=== PATIENT | female | born 1980 | race Caucasian/White ===

== ENCOUNTER 2016-05-06 10:33 | Emergency (ER) | payer MEDICAID, OTHER ==
[~2016-05-06] VITALS: Ht 167.6 cm; Wt 84.0 kg
[~2016-05-06 10:33] MED LIST: LISI-363 PO; LISI30TA4 PO; OXYC1SOL5 PO; PROT40TA PO; WELLTAB39 PO; XANA0.5T PO
[2016-05-06 10:35] VITALS: BP 163/85; PULSE 67; RESP 14; TEMP 98; O2SAT 97
[2016-05-06] MEDS ORDERED: NAPR220T95 PO (10:53)
[2016-05-06] MEDS ORDERED: KETOROLAC TROMETHAMINE 30 MG/ML (IVP) VIAL IV PUSH ONE (11:30)
[2016-05-06] MEDS ORDERED: MORPHINE SULFATE 4 MG/ML INJ IV PUSH STA (11:30)
[2016-05-06] MEDS ORDERED: CLINDAMYCIN INJ 600 MG in SODIUM CHLORIDE 0.9% INJ 100 ML IV ONE (11:30)
[2016-05-06] MEDS ORDERED: SODIUM CHLOR 0.9% 1000 ML INJ 1,000 ML IV ONE (11:30)
[2016-05-06 12:03] LABS: AUTOMATED NEUTROPHIL # 8.1 TH/MM3 (1.8-7.7); BASOPHIL % 0.4 % (0.0-2.0); EOSINOPHIL # 0.1 TH/MM3 (0-0.4); EOSINOPHIL % 1.1 % (0.0-4.0); HEMATOCRIT 33.9 % (35.0-46.0); LYMPH % 10.1 % (9.0-44.0); MEAN CELL VOLUME 85.6 FL (80.0-100.0); MEAN CORPUSCULAR HEMOGLOBIN 28.6 PG (27.0-34.0); MEAN CORPUSCULAR HGB CONC 33.4 % (32.0-36.0); MONO % 7.5 % (0.0-8.0); NEUT % 80.9 % (16.0-70.0); PLATELET COUNT 274 TH/MM3 (150-450); RED BLOOD COUNT 3.96 MIL/MM3 (4.00-5.30); RED CELL DISTRIBUTION WIDTH 16.1 % (11.6-17.2); WHITE BLOOD COUNT 9.9 TH/MM3 (4.0-11.0)
[2016-05-06 12:04] LABS: HEMO FLAGS AUTO DIFF
[2016-05-06 12:50] VITALS: BP 145/81; PULSE 50; RESP 14; O2SAT 99
[2016-05-06 12:50] LABS: PLATELET ESTIMATE SMEAR NORMAL (NORMAL); PLATELET MORPHOLOGY NORMAL (NORMAL); SCAN/DIFF AUTO DIFF CONFIRMED
[2016-05-06 13:24] LABS: ANION GAP 9 MEQ/L (5-15); AST (GOT) 12 U/L (15-37); BICARBONATE 26.1 MEQ/L (21.0-32.0); BLOOD UREA NITROGEN 10 MG/DL (7-18); CHLORIDE 105 MEQ/L (98-107); GLOMERULAR FILTRATION RATE 84 ML/MIN (>89); POTASSIUM 3.9 MEQ/L (3.5-5.1); SODIUM (NA) 140 MEQ/L (136-145)
[2016-05-06 13:27] LABS: ALKALINE PHOSPHATASE 59 U/L (45-117); ALT (GPT) 14 U/L (10-53); TOTAL BILIRUBIN ADULT 0.3 MG/DL (0.2-1.0)
[2016-05-06] MEDS ORDERED: NAPR500 PO (13:35)
[2016-05-06] MEDS ORDERED: HYDR-3533 PO (13:35)
--- NOTE | 2016-05-06 13:36 | PD ---
HPI Chief Complaint: Wound/Suture/Staple Re-Check Time Seen by Provider: 10:47 Travel History International Travel<30 days: No Contact w/Intl Traveler<30days: No Traveled to known affect area: No History of Present Illness HPI So 36-year-old woman presents to the emergency department complaining of a wound on her right leg. States she first knows about a week or so ago. A small red pimple. Over the past several days has gotten more painful red swollen. She's had drainage from the wound. There is an ulcerated base. She' s been putting some cream on it. She had nausea and vomiting when she first started getting sick as well, but she had fever and chills over the past couple days. She had some Keflex laying around that she started yesterday. Symptoms been worsening so she came to the emergency department today. History Past Medical History Medical History: Denies Significant Hx Tetanus Vaccination: > 5 Years Influenza Vaccination: Yes LMP: 05/03/16 : 3 Para: 3 Social History Alcohol Use: Yes (RARELY) Tobacco Use: Yes (vape) Allergies-Medications (Allergen,Severity, Reaction): Coded Allergies: Morphine (Verified Allergy, Intermediate, ITCHING/REDNESS AT IV SITE, 05/06) Reported Meds & Prescriptions Reported Meds & Active Scripts Active Reported Aleve (Naproxen Sodium) 220 Mg Tab 220 Mg PO BID PRN Lisinopril 30 Mg Tab 30 Mg PO DAILY Review of Systems Except as stated in HPI: all other systems reviewed are Neg Physical Exam Narrative GENERAL: Well-appearing 36-year-old, no acute distress. SKIN: Warm and dry. CARDIOVASCULAR: Warm and well perfused. Heart rate regular. No murmurs. RESPIRATORY: Normal rate and effort. MUSCULOSKELETAL: Focused examination of the right lower luo reveals an approximately 2 cm diameter area ulcerated wound base with a raised edge surrounding erythema and swelling. Very tender. Little bit of swelling to the leg as a whole. NEUROLOGICAL: Awake and alert. No gross deficits. Data Data Last Documented VS Vital Signs Date Time Temp Pulse Resp B/P Pulse Ox O2 Delivery O2 Flow Rate FiO2 05/06/16 12:50 50 14 145/81 99 Room Air 05/06/16 10:35 98.0 Orders Consult Vascular Access Team (05/06/16 ) Complete Blood Count With Diff (05/06/16 11:30) Comprehensive Metabolic Panel (05/06/16 11:30) Iv Access Insert/Monitor (05/06/16 11:30) Blood Culture (05/06/16 11:30) Lactic Acid (05/06/16 11:30) Sodium Chlor 0.9% 1000 Ml Inj (Ns 1000 M (05/06/16 11:30) Clindamycin Inj (Cleocin Inj) (05/06/16 11:30) Ketorolac Inj (Toradol Inj) (05/06/16 11:30) Morphine Inj (Morphine Inj) (05/06/16 11:30) Vascular Poc Ultrasound (05/06/16 ) Labs Laboratory Tests Test 05/06/16 05/06/16 11:40 12:50 White Blood Count 9.9 TH/MM3 Red Blood Count 3.96 MIL/MM3 Hemoglobin 11.3 GM/DL Hematocrit 33.9 % Mean Corpuscular Volume 85.6 FL Mean Corpuscular Hemoglobin 28.6 PG Mean Corpuscular Hemoglobin 33.4 % Concent Red Cell Distribution Width 16.1 % Platelet Count 274 TH/MM3 Mean Platelet Volume 9.1 FL Neutrophils (%) (Auto) 80.9 % Lymphocytes (%) (Auto) 10.1 % Monocytes (%) (Auto) 7.5 % Eosinophils (%) (Auto) 1.1 % Basophils (%) (Auto) 0.4 % Neutrophils # (Auto) 8.1 TH/MM3 Lymphocytes # (Auto) 1.0 TH/MM3 Monocytes # (Auto) 0.7 TH/MM3 Eosinophils # (Auto) 0.1 TH/MM3 Basophils # (Auto) 0.0 TH/MM3 CBC Comment AUTO DIFF Differential Comment AUTO DIFF CONFIRMED Platelet Estimate NORMAL Platelet Morphology Comment NORMAL Red Cell Morphology Comment NORMAL Lactic Acid Level 0.4 mmol/L Sodium Level 140 MEQ/L Potassium Level 3.9 MEQ/L Chloride Level 105 MEQ/L Carbon Dioxide Level 26.1 MEQ/L Anion Gap 9 MEQ/L Blood Urea Nitrogen 10 MG/DL Creatinine 0.77 MG/DL Estimat Glomerular Filtration 84 ML/MIN Rate Random Glucose 83 MG/DL Calcium Level 8.7 MG/DL Total Bilirubin 0.3 MG/DL Aspartate Amino Transf 12 U/L (AST/SGOT) Alanine Aminotransferase 14 U/L (ALT/SGPT) Alkaline Phosphatase 59 U/L Total Protein 7.3 GM/DL Albumin 3.2 GM/DL [facility] Medical Decision Making Medical Screen Exam Complete: Yes Emergency Medical Condition: Yes Interpretation(s) LABS: CBC unremarkable. Mild anemia. CMP unremarkable. Lactate 0.4 Differential Diagnosis cellulitis, spider bite, abscess, other Narrative Course Medical decision making 36-year-old woman presents to the emergency department with worsening ulcerated wound on her right leg. Appears infected. Possible spider bite but less likely. We'll check labs, plan antibiotics, wound culture, blood cultures given fever. Diagnosis Primary Impression: Abscess of right leg Additional Instructions: Take clindamycin as prescribed. Use Naprosyn and Lortab as needed for pain. Keep leg elevated to reduce swelling. Return to the emergency department for any worsening pain redness swelling fevers or any other new or worsening symptoms. Follow-up with your primary doctor in the next 2-4 days. Med/Other Pt SpecificInfo: Prescription(s) given Scripts Naproxen (Naprosyn)500 Mg [id number] Mg PO BID PRN (PAIN SCALE 1 TO 10) #20 TAB Prov:Cristo Chisholm MD 05/06/16 Hydrocodone-Acetaminophen (Lortab)5-325 Mg Tab1-2 Tab PO Q6H PRN (PAIN) #12 TAB Prov:Cristo Chisholm MD 05/06/16 Disposition: 01 DISCHARGE HOME Condition: Stable Cristo Chisholm MD May 06, 2016 13:36
[2016-05-06] MEDS ORDERED: CLIN1CAP6 PO (13:44)
[2016-05-06 13:50] VITALS: BP 149/83; PULSE 53; RESP 14; O2SAT 100
== END 2016-05-06 14:05 | disposition home or self-care (01) ==
LOC: NEPA 10:33
DX: L02.415 Cutaneous abscess of right lower limb (principal); R11.2 Nausea with vomiting, unspecified
CPT/HCPCS: 80053; 83605; 85025; 87040; 96374; 99283; J1885; J7030; 76937